=== PATIENT | male | born 1965 | race Caucasian/White ===

== ENCOUNTER 2024-12-28 08:20 | Day surgery (SDC) | payer BC ==
[~2024-12-28] VITALS: Ht 180.3 cm; Wt 86.2 kg
[2024-12-28] VITALS (9 sets, daily range): BP systolic 121–160; BP diastolic 61–91; PULSE 50–59; RESP 12–19; TEMP 97.2; O2SAT 93–100
[~2024-12-28 08:20] MED LIST: METOPROLOL SUCC50 MG PO; TARKA 4-240 MG1 EACH PO; Z.0.AMBIEN CR12.5 MG PO; Z.0.CLONAZEPAM0.5 M1 PO; Z.0.LEXAPRO20 MG PO
[2024-12-28] MEDS ORDERED: LIDOCAINE HCL 2% LOCAL 20 ML VIAL ONE (08:37)
[2024-12-28] MEDS ORDERED: VERAPAMIL HCL 2.5 MG/ML 2 ML VIAL ONE (08:37)
[2024-12-28] MEDS ORDERED: HEPARIN SOD (PORCINE) 1000 UNIT/ML 30ML ONE (08:37)
[2024-12-28] MEDS ORDERED: NITROGLYCERIN/D5W 200 MCG/ML 250 ML ONE (08:38)
[2024-12-28] MEDS ORDERED: HEPARIN SOD/SOD CHLORIDE 2,000 ML ONE (08:38)
[2024-12-28] MEDS ORDERED: IOPAMIDOL 370 MG/ML 100 ML INFUS..BTL INJ ONE (08:38)
[2024-12-28] MEDS: SODIUM CHLORIDE 0.9% 1000ML 1,000 ML ONE (09:08)
[2024-12-28] MEDS ORDERED: DIPHENHYDRAMINE HCL 25 MG CAP ONE (09:28)
[2024-12-28] MEDS ORDERED: ALPRAZOLAM 0.5 MG TAB ONE (09:28)
[2024-12-28] MEDS ORDERED: MIDAZOLAM HCL 2 MG/2 ML VIAL ONE ×4 (09:32→10:27)
[2024-12-28] MEDS ORDERED: FENTANYL CITRATE/PF 100MCG/2 ML INJ ONE ×2 (09:32→10:17)
[2024-12-28] MEDS ORDERED: ASPIRIN 325 MG TAB ONE (10:29)
[2024-12-28] MEDS ORDERED: PRASUGREL 10 MG TAB ONE (10:29)
== END 2024-12-28 14:30 | disposition home or self-care (01) ==
LOC: CATH LAB 08:20
PROVIDERS: ATTEND Internal Medicine Interventional Cardiology
DX: I25.110 Atherosclerotic heart disease of native coronary artery with unstable angina pectoris (principal); I70.222 Atherosclerosis of native arteries of extremities with rest pain, left leg; I10 Essential (primary) hypertension; E78.49 Other hyperlipidemia; D64.9 Anemia, unspecified; I65.23 Occlusion and stenosis of bilateral carotid arteries; F17.210 Nicotine dependence, cigarettes, uncomplicated; Z79.899 Other long term (current) drug therapy; Z82.49 Family history of ischemic heart disease and other diseases of the circulatory system
CPT/HCPCS: 75625; 75716; 76937; 92928; 93454; C1725; C1874; J1644; J2003; J2250; J3010; J7030; Q9967; 36245; 75630; 99152; 99153